=== PATIENT | female | born 1990 | race American Indian/Alaskan Native ===

== ENCOUNTER 2018-05-08 23:09 | Emergency (ER) | payer SELFPAY ==
[2018-05-09] MEDS ORDERED: TYLENOL PO ONE (00:09)
[2018-05-09 00:55] LABS: Bilirubin,Urine NEG (Negative); Blood,Urine NEG (Negative); Color,Urine Straw (Yellow); Protein,Urine <15 mg/dL mg/dL (Negative); RBC,Urine < 1.0 /HPF (0.0-6.0); Urobilinogen,Urine < 2.0 mg/dL (<2.0)
[2018-05-09 01:02] LABS: Basophils % (Auto) 0.2 % (0.0-1.8); Eosinophils % (Auto) 0.6 % (0.0-4.3); Hematocrit 36.4 % (30.3-42.9); Hemoglobin 12.7 gm/dl (10.1-14.3); Lymphocytes # (Auto) 1.3 K/mm3 (1.2-5.4); Lymphocytes % (Auto) 15.3 % (13.4-35.0); Mean Corpuscular HGB Conc 35 % (30-34); Mean Corpuscular Hemoglobin 30 pg (28-32); Mean Corpuscular Volume 87 fl (79-97); Monocytes # (Auto) 0.8 K/mm3 (0.0-0.8); Monocytes % (Auto) 9.4 % (0.0-7.3); Platelet Count 200 K/mm3 (140-440); Red Cell Distribution Width 14.2 % (13.2-15.2)
[2018-05-09 01:15] LABS: WBC,Urine < 1.0 /HPF (0.0-6.0)
--- NOTE | 2018-05-09 03:51 | Ultrasound Report ---
FINAL REPORT PROCEDURE: US OB > = 14 WEEKS FETUS TECHNIQUE: Real-time transabdominal sonography of the uterus, placenta, amniotic fluid, adnexa, and fetus was performed with image documentation. Measurements were obtained to determine age/size. M-mode Doppler was used to document heartbeat. CPT 43840 HISTORY: abdominal cramps COMPARISON: No prior studies are available for comparison. FINDINGS: ADDITIONAL GESTATION: None. GENERAL: IUP: Single living intrauterine . Position: Cephalic Placental position: Posterior, without previa. Amniotic fluid volume: Normal. MATERNAL: Uterus: Within normal limits. Cervical length: 3.6 cm. Internal Os: Closed. FETUS: Heart rate and rhythm: 157 beats per minute anatomic survey: Normal. MEASUREMENTS: BPD: 3 centimeters correspond at 15 weeks and 4 days HC: 10.8 centimeters correspond at 15 weeks and 1 day AC: 8.8 centimeters correspond to 15 weeks FL: 1.75 centimeters corresponding to 15 weeks Mean Gestational Age (composite criteria): 15 weeks and 2 days Estimated Due Date (earliest scan): 10/29/2018 IMPRESSION: Single intrauterine gestation at 15 weeks and 2 days. Estimated due date: 10/29/2018. Normal survey with appropriate growth.
--- NOTE | 2018-05-09 05:10 | Emergency Department Report ---
ED HPI - General Chief complaint: Abdominal Pain Stated complaint: MIGRAINE, SOB CRAMPY Time Seen by Provider: 05/09/18 05:06 Source: patient Mode of arrival: Ambulatory Limitations: No Limitations - History of Present Illness Initial comments: Patient is a 27-year-old Female who is 18 weeks who is complaining of possibly 4 days of some abdominal crampiness. Patient recently finished a course of antibiotics for a UTI. Patient is denying any vaginal bleeding or vaginal discharge or dysuria at this time. Patient also has had some headaches for approximately a week with some mild light sensitivity as well as nasal congestion and mild cough and sore throat. Sore throat is worse over the last 2 days has been present for as long as the headaches present. Patient denies any fevers chills vomiting or diarrhea. Patient states headache is 7 out of 10 in severity. Patient is able to tolerate fluids and been drinking only water. - Related Data Previous Rx's Medication Instructions Recorded Last Taken Type Nitrofurantoin Oliver/M-Cryst 100 mg PO Q12HR #14 capsule 05/03/15 Unknown Rx [Macrobid CAP] Phenazopyridine [Pyridium] 200 mg PO TID #6 tab 05/03/15 Unknown Rx Azithromycin [Zithromax Z-DASHAWN] 250 mg PO DAILY #6 tablet 05/09/18 Unknown Rx Allergies Allergy/AdvReac Type Severity Reaction Status Date / Time No Known Allergies Allergy Verified 05/09/18 05:09 ED Review of Systems ROS: Stated complaint: MIGRAINE, SOB CRAMPY Other details as noted in HPI Comment: All other systems reviewed and negative ED Past Medical Hx - Past Medical History Previous Medical History?: No Hx Headaches / Migraines: Yes - Surgical History Additional Surgical History: x2 - Social History Smoking Status: Never Smoker Substance Use Type: None - Medications Home Medications: Home Medications Medication Instructions Recorded Confirmed Last Taken Type Nitrofurantoin Oliver/M-Cryst 100 mg PO Q12HR #14 capsule 05/03/15 Unknown Rx [Macrobid CAP] Phenazopyridine [Pyridium] 200 mg PO TID #6 tab 05/03/15 Unknown Rx Azithromycin [Zithromax Z-DASHAWN] 250 mg PO DAILY #6 tablet 05/09/18 Unknown Rx ED Physical Exam - General Limitations: No Limitations General appearance: alert, in no apparent distress - Head Head exam: Present: atraumatic, normocephalic, other (has no sinus tenderness.) - Eye Eye exam: Present: normal appearance - ENT ENT exam: Present: mucous membranes moist, other (posterior pharynx shows some mild erythema with no exudates) - Neck Neck exam: Present: normal inspection - Respiratory Respiratory exam: Present: normal lung sounds bilaterally. Absent: respiratory distress - Cardiovascular Cardiovascular Exam: Present: regular rate, normal rhythm. Absent: systolic murmur, diastolic murmur, rubs, gallop - GI/Abdominal GI/Abdominal exam: Present: soft, normal bowel sounds - Extremities Exam Extremities exam: Present: normal inspection - Back Exam Back exam: Present: normal inspection - Neurological Exam Neurological exam: Present: alert, oriented X3 - Psychiatric Psychiatric exam: Present: normal affect, normal mood - Skin Skin exam: Present: warm, dry, intact, normal color. Absent: rash ED Course Vital Signs 05/09/18 00:01 Temperature 97.7 F Pulse Rate 92 H Respiratory 18 Rate Blood Pressure 129/75 O2 Sat by Pulse 98 Oximetry ED Medical Decision Making - Lab Data Result diagrams: 05/09/18 00:19 Lab Results 05/09/18 05/09/18 05/09/18 Range/Units 00:19 00:19 Unknown WBC 8.5 (4.5-11.0) K/mm3 RBC 4.20 (3.65-5.03) M/mm3 Hgb 12.7 (10.1-14.3) gm/dl Hct 36.4 (30.3-42.9) % MCV 87 (79-97) fl MCH 30 (28-32) pg MCHC 35 H (30-34) % RDW 14.2 (13.2-15.2) % Plt Count 200 (140-440) K/mm3 Lymph % (Auto) 15.3 (13.4-35.0) % Oliver % (Auto) 9.4 H (0.0-7.3) % Eos % (Auto) 0.6 (0.0-4.3) % Baso % (Auto) 0.2 (0.0-1.8) % Lymph # 1.3 (1.2-5.4) K/mm3 Oliver # 0.8 (0.0-0.8) K/mm3 Eos # 0.0 (0.0-0.4) K/mm3 Baso # 0.0 (0.0-0.1) K/mm3 Seg Neutrophils % 74.5 H (40.0-70.0) % Seg Neutrophils # 6.3 (1.8-7.7) K/mm3 HCG, Quant 91516 H (0-4) mIU/mL Urine Color Straw (Yellow) Urine Turbidity Clear (Clear) Urine pH 7.0 (5.0-7.0) Ur Specific [place] 1.008 (1.003-1.030) Urine Protein <15 mg/dl (Negative) mg/dL Urine Glucose (UA) Neg (Negative) mg/dL Urine Ketones Neg (Negative) mg/dL Urine Blood Neg (Negative) Urine Nitrite Neg (Negative) Urine Bilirubin Neg (Negative) Urine Urobilinogen < 2.0 (<2.0) mg/dL Ur Leukocyte Esterase Neg (Negative) Urine WBC (Auto) < 1.0 (0.0-6.0) /HPF Urine RBC (Auto) < 1.0 (0.0-6.0) /HPF U Epithel Cells (Auto) 2.0 (0-13.0) /HPF - Medical Decision Making Patient's blood pressure is within normal limits the patient has no protein in the urine she is not preeclamptic. Patient urinalysis shows normal urine. Patient does have some mild erythema to her throat and will be treated for pharyngitis. Patient will be discharged home and continue with Tylenol for pain Critical care attestation.: If time is entered above; I have spent that time in minutes in the direct care of this critically ill patient, excluding procedure time. ED Disposition Clinical Impression: Abdominal cramping affecting Pharyngitis Qualifiers: Pharyngitis/tonsillitis etiology: unspecified etiology Qualified Code(s): J02.9 - Acute pharyngitis, unspecified Disposition: DC-01 TO HOME OR SELFCARE Is pt being admited?: No Does the pt Need Aspirin: No Condition: Stable Instructions: Pharyngitis (ED), Abdominal Pain in (ED) Referrals: PRIMARY CARE, [Primary Care Provider] - 3-5 Days Time of Disposition: 05:10
[2018-05-09 05:33] VITALS: BP 126/74
== END 2018-05-09 05:32 | disposition home or self-care (01) ==
LOC: ED 23:09
DX: O99.512 Diseases of the respiratory system complicating pregnancy, second trimester (principal); J02.9 Acute pharyngitis, unspecified; Z3A.18 18 weeks gestation of pregnancy
CPT/HCPCS: 36415; 76805; 81001; 84702; 85025; 99284